=== PATIENT | female | born 1985 | race African-American/Black ===

== ENCOUNTER 2018-03-16 17:11 | Emergency (ER) | payer OTHER, BC ==
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
[2018-03-16 18:14] VITALS: BP 118/51
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
== END 2018-03-16 19:56 | disposition home or self-care (01) ==
LOC: ER 17:11
DX: S16.1XXA Strain of muscle, fascia and tendon at neck level, initial encounter (principal); T22.212A Burn of second degree of left forearm, initial encounter; T23.172A Burn of first degree of left wrist, initial encounter; S50.312A Abrasion of left elbow, initial encounter; S50.311A Abrasion of right elbow, initial encounter; S80.211A Abrasion, right knee, initial encounter; S50.811A Abrasion of right forearm, initial encounter; V47.5XXA Car driver injured in collision with fixed or stationary object in traffic accident, initial encounter; Y93.89 Activity, other specified; W22.11XA Striking against or struck by driver side automobile airbag, initial encounter
CPT/HCPCS: 72050; 99284

== ENCOUNTER 2019-06-22 15:44 | Emergency (ER) | payer OTHER, BC ==
[2019-06-22 15:51] VITALS: BP 142/87
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
== END 2019-06-22 16:13 | disposition home or self-care (01) ==
LOC: ER 15:44
DX: M54.2 Cervicalgia (principal); V49.40XA Driver injured in collision with unspecified motor vehicles in traffic accident, initial encounter
CPT/HCPCS: 99283